=== PATIENT | female | born 1985 | race Caucasian/White ===

== ENCOUNTER → 2020-09-20 06:47 | Outpatient (CLI) | payer OTHER, SELFPAY ==
[2020-09-20 22:40] LABS: SARS-CoV-2 RNA PCR Negative
== END ==
PROVIDERS: PCP Physician Assistant; Visit Provider Physician Assistant
DX: R68.89 Other general symptoms and signs (principal); Z20.822 Contact with and (suspected) exposure to COVID-19
CPT/HCPCS: C9803; U0003; U0005

== ENCOUNTER 2021-06-04 16:48 | Emergency (ER) | payer OTHER, SELFPAY ==
[2021-06-04 17:01] VITALS: BP 117/65; PULSE 74; RESP 18; TEMP 36.6; O2SAT 99
--- NOTE | 2021-06-04 17:47 | ED.URI ---
HPI - URI/Sore Throat General Chief Complaint: Upper Respiratory Infection Stated Complaint: sorethroat Time Seen by Provider: 06/04/21 17:39 Source: patient and RN notes reviewed Mode of arrival: ambulatory Limitations: no limitations History of Present Illness HPI Narrative: Patient presents today complaining of sore throat, right ear pain, headache. Symptoms began today. She currently rates her pain 6/10 and has been taking Letty-Eldora cold medicine and Zicam with some mild relief. Denies cough, congestion, rhinorrhea, or any additional symptoms. She received her flu vaccine yesterday. MD elicited complaint: sore throat Related Data Home Medications Medication Instructions Recorded Confirmed bupropion HCl 1 mg PO DAILY 06/04/21 06/04/21 escitalopram oxalate 10 mg PO DAILY 06/04/21 06/04/21 Allergies Allergy/AdvReac Type Severity Reaction Status Date / Time Penicillins Allergy Unknown Verified 06/04/21 17:08 Review of Systems Review of Systems: CONSTITUTIONAL: Denies body aches, fever, chills, or sweats. EYES: Denies visual changes, redness, or discharge. ENT: Denies rhinorrhea, congestion. + Sore throat, right ear pain CARDIOVASCULAR: Denies chest pain, palpitations, or edema. RESPIRATORY: Denies cough or dyspnea. GASTROINTESTINAL: Denies abdominal pain, nausea, vomiting, or diarrhea. GENITOURINARY: Denies dysuria or hematuria. SKIN: Denies rash, itching, or wounds. MUSCULOSKELETAL: Denies back pain, joint pain, or myalgia. NEUROLOGIC: Denies numbness, tingling, or weakness.+ Headache PSYCH: Denies depression or anxiety. PMFSH Comments At time of signature, I have reviewed and agree with nursing past medical, surgical, social and family history unless otherwise noted. Please see nursing chart for further information. There is no relevant family history pertinent to the presenting complaint Exam Narrative: GENERAL: Well-appearing, well-nourished, and in no acute distress. HEAD: Normocephalic, atraumatic. EYES: EOMI. No redness or drainage. Conjunctivae normal. ENT: Mucous membranes pink and moist. Nares clear. No rhinorrhea. Right middle ear effusion with clear fluid. Throat erythematous without edema. 2 tiny dots of exudate to the right tonsil. Tonsils 1+ bilaterally. Uvula midline. NECK: Normal AROM. Supple. No lymphadenopathy. CHEST: No respiratory distress. Clear to auscultation. HEART: Regular rate and rhythm. No murmur appreciated. Normal peripheral pulses. EXTREMITIES: Normal range of motion. No edema. SKIN: Warm, dry, no rash. Capillary refill normal. Normal skin turgor. NEURO: No focal deficits. Alert and oriented x3. Gait steady. PSYCH: Normal affect. No signs of depression or anxiety. Course Vital Signs Vital signs: Vital Signs Temperature 97.9 F 06/04/21 17:01 Pulse Rate 74 06/04/21 17:01 Respiratory Rate 18 06/04/21 17:01 Blood Pressure 117/65 06/04/21 17:01 Pulse Oximetry 99 06/04/21 17:01 Temperature 97.9 F 06/04/21 17:01 Pulse Rate 74 06/04/21 17:01 Respiratory Rate 18 06/04/21 17:01 Blood Pressure 117/65 06/04/21 17:01 Pulse Oximetry 99 06/04/21 17:01 Reviewed MDM - URI/Sore Throat Differential Diagnosis Differential diagnosis: Likely upper respiratory infection, otitis media, viral infection, pharyngitis and other (Strep throat) Lab Data Attestation: I reviewed the patient's lab results. Labs: Strep Screen Presumptive Negative *(Reference Range: Negative)* Critical Care Time Critical Care Time Critical Care Time: No Discharge Plan Discharge Clinical Impression: Acute viral pharyngitis Patient Disposition: Home, Self-Care Condition: Stable Instructions: Pharyngitis (ED) Additional Instructions: Your rapid strep swab was negative today at [facility]. You will be notified in a few days if the culture comes back positive for strep, and appropriate antibiotics w
== END 2021-06-04 17:54 | disposition home or self-care (01) ==
PROVIDERS: Emergency Provider Nurse Practitioner; PCP Physician Assistant
DX: J02.8 Acute pharyngitis due to other specified organisms (principal); F41.9 Anxiety disorder, unspecified; F32.9 Major depressive disorder, single episode, unspecified
CPT/HCPCS: 87081; 87880; 99213; G0463

== ENCOUNTER 2022-04-15 01:03 | Day surgery (SDC) | payer OTHER, SELFPAY ==
--- NOTE | 2022-04-06 09:40 | SUR.PREOP ---
Report to the Outpatient Waiting Room, entrance under the green pavilion located off [facility], at time 0800 on date 04/15/22. Planned Procedure Time: 1000. Time changes happen often and if your time is changed the preop area will call you the afternoon before. - You and your visitor will be asked to self-screen and do not enter if you have any COVID symptoms. - We encourage only one visitor and NO visitors under age 16 are allowed at this time. Your visitor will receive communication by the phone number that is given day of service. - The patient visitor is requested to social distance or may leave the building when not with patient due to restrictions. - A mask is required within the hospital. Patients may have clear liquids (water, carbonated beverages, clear teas, apple juice) until 3 hours prior to surgery with a maximum of 20 ounces. - NO CLEAR LIQUIDS AFTER 0700 - No food from midnight until time of surgery - Infants may have breast milk until 4 hours before surgery, infant formula 6 hours prior to surgery. - Children will be allowed to drink immediately following surgery. If applicable, please bring a bottle or sippy cup to assist with drinking. Juice, water, soda, and popsicles are readily available. For infants on formula, please bring formula the day of surgery. Pacifiers are allowed. Please no make-up, nail bulgarian, hairspray, perfume, deodorant, or body powder the day of surgery. No jewelry (including any body piercings) or valuables the day of surgery, leave them at home. Please take a shower or bath the night before, or the morning of, surgery with an antibacterial soap. Wear comfortable, loose fitting clothing. Children are encouraged to wear pajamas. - Jewelry must be removed prior to entering the operating room. Rings and piercings that are not removed may be cut off. - The hospital will not accept responsibility for valuables. - Please leave all valuables, including medications, at home the day of surgery. If you are going home after surgery, a licensed ross carrier driver must drive you home. - NO public transportation without another adult. - We recommend that an adult stay with you for 24 hours following discharge. - We also recommend that you do not drive, make important decision, drink alcoholic beverages, or take any drugs that were not prescribed by your health care provider for at least 24 hours after your discharge time. For Pediatric surgeries, we recommend two adults accompany the child home. Follow any additional instructions given to you from your surgeon. If you or anyone in your household have experienced Covid symptoms in the past week, please notify your surgeon or the nurse liaison at the phone number below for possible testing. Telephone instructions given to RAEGAN PETERSONN and asked if any additional questions and then verbalized understanding. Patient advised to call surgeon office or pre surgery nurse liaison [phone] if any additional questions.
[2022-04-06 09:50] VITALS: BMI 32.0
--- NOTE | 2022-04-14 13:31 | PM.IMHP ---
H&P: HPI History of Present Illness Date/Time: 04/14/22 13:31 37-year-old female presents with complaints of heavy vaginal bleeding. Menstrual cycles lasting 5-7 days 3-5 days heavy with clotting and significant amount of discomfort. She denies any medical treatment for this issue. Also longstanding history of left Bartholin gland cyst, which now is larger and state causing her discomfort. Chief Complaint: menometrorrha Review of Systems Review of Systems: All systems reviewed & are unremarkable except as noted in HPI and below PMFSH Past Medical History Medical History Anxiety and depression Surgical History Surgical History Delivery by section (08/25/18) rpt c/s with Tubal ligation Delivery by section (~12/20/14) primary c/s arrest of descent History of colposcopy (07/14/06) Colposcopy - no acetowhitening, -ECC- benign History of gynecological procedure mirena iud insertion 02/11/2015 / mirena iud removal 02/18/2017 Family History Family History Grandparent Lung cancer Social History Social History Years smoked: 5 Smoking status: Current some day smoker Tobacco type: cigarettes and e-cigarettes/vaping Additional smoking assessment comments: CIGARETTES ~3YRS ON & OFF & NOW CURRENTLY VAPING ~2YRS Alcohol intake: current Drinks per week: 4 Substance use: never Additional living arrangements comments: 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[employer] Gender identity (if verbalized by the patient): Female Sexual Orientation (if Verbalized by the Patient): Straight or Heterosexual Spiritual care concerns: No Meds Home Medications and Allergies Home Medications Medication Instructions Recorded Confirmed Type bupropion HCl 300 mg 24 hr tablet, 1 mg PO DAILY 06/04/21 04/06/22 History extended release semaglutide (weight loss) 2.4 2.4 mg subcut WEEKLY 03/08/22 04/06/22 History mg/0.75 mL subcutaneous pen injector (Wejorge avy) escitalopram oxalate 20 mg tablet 20 mg PO DAILY 04/06/22 04/06/22 History Allergies Allergy/AdvReac Type Severity Reaction Status Date / Time Penicillins Allergy Unknown Hives Verified 04/06/22 09:49 Exam Const: General: cooperative, healthy appearing and comfortable Resp: Effort & Inspection: normal respiratory effort Auscultation: clear to auscultation bilaterally Cardio: Rate: regular rate Rhythm: regular rhythm GI: Inspection: normal to inspection Auscultation: normal bowel sounds : External Female Exam: normal external appearance Speculum Exam - Vagina: other ( 4-5cm Bartholin gland cyst (left)) Assessment and Plan Assessment and plan (1) Menometrorrhagia: Code(s): N92.1 - Excessive and frequent menstruation with irregular cycle Status: Acute (2) Bartholin gland cyst: Code(s): N75.0 - Cyst of Bartholin's gland Status: Acute Plan 1. Hysteroscopy with uterine curettings 2. Endometrial ablation 3. Bartholin's gland cystectomy
--- NOTE | 2022-04-14 16:05 | WPDANESEPPF ---
Anes - Initial Pre Proc Eval Procedure: Operation Date: 04/15/22 10:00 Proposed Procedures p Hysteroscopy, Dilation and Curettage, Sandy Endometrial Ablation - Ishmael Cai MD s Left Bartholin's Gland Cystectomy - Ishmael Cai MD Date/Time: 04/14/22 16:05 Surgeon: Ishmael Cai MD Pre Op Diagnosis: Menometrorrhagia, Lt Bartholin Gland Cyst Patient Data Age: 37 Gender: F Height: 1.68 m Weight: 90 kg Allergies Allergy/AdvReac Type Severity Reaction Status Date / Time Penicillins Allergy Unknown Hives Verified 04/06/22 09:49 Home Medications Medication Instructions Recorded Confirmed Type bupropion HCl 300 mg 24 hr tablet, 1 mg PO DAILY 06/04/21 04/15/22 History extended release semaglutide (weight loss) 2.4 2.4 mg subcut WEEKLY 03/08/22 04/15/22 History mg/0.75 mL subcutaneous pen injector (Wegovy) escitalopram oxalate 20 mg tablet 20 mg PO DAILY 04/06/22 04/15/22 History Patient hx anesthesia problems: none Family hx anesthesia problems: none Results Review: All pre-operative results and documents have been reviewed as part of the pre-operative evaluation. [facility] Past Medical History Medical History Anxiety Anxiety and depression Menometrorrhagia Obesity Smoker Surgical History Surgical History Delivery by section (08/25/18) rpt c/s with Tubal ligation Delivery by section (~12/20/14) primary c/s arrest of descent History of colposcopy (07/14/06) Colposcopy - no acetowhitening, -ECC- benign History of gynecological procedure mirena iud insertion 02/11/2015 / mirena iud removal 02/18/2017 Family History Family History Grandparent Lung cancer Social History Social History Years smoked: 5 Smoking status: Current some day smoker Tobacco type: cigarettes and e-cigarettes/vaping Additional smoking assessment comments: CIGARETTES ~3YRS ON & OFF & NOW CURRENTLY VAPING ~2YRS Alcohol intake: current Drinks per week: 4 Substance use: never Living arrangements: with family Additional living arrangements comments: 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ment Gender identity (if verbalized by the patient): Female Sexual Orientation (if Verbalized by the Patient): Straight or Heterosexual Spiritual care concerns: No Anes - Eval Final PreProcedure Day of Procedure 04/14/22 16:05 Patient weight: obese Heart: regular rate and rhythm Lungs: clear to auscultation and normal air movement Airway: Mallampati scale class II Neurological: alert and oriented Last oral intake: >/= 8 hours ASA classification: II Emergent: no Anesthetic plan: proceed Anesthesia type and monitoring: general GIVS and LMA Results Review: All pre-operative results and documents have been reviewed as part of the pre-operative evaluation. Informed Consent: The patient's anesthetic plan and its attendant risks and benefits were discussed with the patient/family/POA. Questions were solicited and answers provided to the satisfaction of the patient/family/POA.
[2022-04-15 08:08] VITALS: BP 113/67; PULSE 82; RESP 20; TEMP 36.4; O2SAT 98
[2022-04-15] MEDS: ACETAMINOPHEN 500 MG TABLET 1000 MG PO (08:18)
[2022-04-15] MEDS: LACTATED RINGERS 1,000 ML 30 ML IV CONT ×2 (09:00→10:20)
--- NOTE | 2022-04-15 09:25 | WPDHPUPDATE1 ---
History and Physical Update Update Date/Time: 04/15/22 09:25 History and Physical has been reviewed, including an updated exam of the patient. There are NO changes in the patient's condition. Risks, benefits, and alternatives have been discussed and questions answered. Patient agrees to proceed with procedure.
[2022-04-15] MEDS: ceFAZolin 2 GM/D5W 50 ML 2 GM/50 ML BAG IVPB (09:30)
[2022-04-15] MEDS: LIDOCAINE HCL 1% PF 30 ML VIAL 10 ML INFILTRATE (09:47)
--- NOTE | 2022-04-15 10:14 | W.PM.PROC2 ---
Procedure Note - Detailed Date of Procedure 04/15/22 Pre-op Diagnosis 1 Menometrorrhagia, 2 Lt Bartholin Gland Cyst Post-op Diagnosis Same Procedure Performed 1. Hysteroscopy with uterine curettings 2. Endometrial ablation 3. Left Bartholin gland cystectomy Surgeon Ishmael Cai MD Anesthesia MAC Findings 1. On hysteroscopic exam thickened tissue noted throughout though no specific polyps or fibroids. 2. Vaginal exam revealed 5cm left Bartholin's cyst Description of Procedure Patient prepped and draped in usual manner for the procedure. Cervix was dilated allow the hysteroscope to be placed. Hysteroscopic exam revealed findings as above and curettings were obtained. Endometrial ablation instrument was placed, cavity assessment was performed, and the instrument was activated. At the end of the cycle hysteroscopic exam revealed destruction of the entire cavity. Attention then placed to the left vulva. The vaginal mucosa over the cyst was injected with lidocaine and then incised with clear fluid drained. The cyst wall was then dissected. This deep defect was closed using 2-0 chromic in a running interlocking manner to approximate the deep tissue and close this space. Subcuticular incision was then approximated using 2-0 chromic in a running manner to approximate the skin edges. There was no evidence of hematoma accumulation or any further fluid collection. At this point the procedure was considered terminated and the patient was sent to the recovery room in stable condition. Estimated Blood Loss 25 Drains No Packing No Pathology Yes Complications No immediate complications Condition Stable Disposition PACU [facility] Billing Surgery - Charge Forward: Surgery Billing
[2022-04-15 10:19] VITALS: BP 102/61; PULSE 76; RESP 16; O2SAT 100
[2022-04-15 10:45] VITALS: BP 124/73; PULSE 69; RESP 16
[2022-04-15] MEDS: oxyCODONE HCL (*CRX) 5 MG TAB IR PO (10:59)
[2022-04-15 11:15] VITALS: BP 132/81; PULSE 62; RESP 16
[2022-04-15 11:45] VITALS: BP 130/86; PULSE 76; RESP 16
== END 2022-04-15 11:58 | disposition home or self-care (01) ==
PROVIDERS: PCP Physician Assistant; Visit Provider Obstetrics & Gynecology
PROC: 0U5B8ZZ Destruction of Endometrium, Via Natural or Artificial Opening Endoscopic (ICD-10-PCS; CPT 58563; principal; 2022-04-15 10:00)
PROC: (CPT 56440; 2022-04-15 10:00)
DX: N92.1 Excessive and frequent menstruation with irregular cycle (principal); N75.0 Cyst of Bartholin's gland; F41.8 Other specified anxiety disorders; E66.9 Obesity, unspecified; Z68.33 Body mass index [BMI] 33.0-33.9, adult; F17.290 Nicotine dependence, other tobacco product, uncomplicated
CPT/HCPCS: 58563; 56740; 88305; A9270; J0690; J1100; J2250; J2405; J2704; J3010; J7030; J7120

== ENCOUNTER 2023-08-31 14:25 | Emergency (ER) | payer OTHER, SELFPAY ==
[2023-08-31 14:48] VITALS: BP 115/72; PULSE 79; RESP 16; TEMP 36.7; O2SAT 99
--- NOTE | 2023-08-31 15:05 | ED.URI ---
HPI - URI/Sore Throat General Chief Complaint: Upper Respiratory Infection Stated Complaint: sorethroat History of Present Illness HPI Narrative: 38 y/o female presented for c/o sore throat, sinus congestion and drainage, and mild cough. Denies sob, wheezing, n/v/d/f/c. Taking mucinex. Related Data Home Medications Medication Instructions Recorded Confirmed bupropion HCl 300 mg 24 hr tablet, 1 mg PO DAILY 06/04/21 08/31/23 extended release semaglutide (weight loss) 2.4 2.4 mg subcut WEEKLY 03/08/22 08/31/23 mg/0.75 mL subcutaneous pen injector (Wegovy) escitalopram oxalate 20 mg tablet 20 mg PO DAILY 04/06/22 08/31/23 alprazolam 0.5 mg tablet 0.5 mg PO QHS PRN Anxiety 04/22/23 08/31/23 buspirone 5 mg tablet 5 mg PO BID 08/31/23 08/31/23 Allergies Allergy/AdvReac Type Severity Reaction Status Date / Time Penicillins AdvReac Mild Hives Verified 08/31/23 14:45 Review of Systems Review of Systems: CONSTITUTIONAL: Denies body aches, fever, chills, or sweats. EYES: Denies visual changes, redness, or discharge. ENT: reports rhinorrhea, congestion, sore throat CARDIOVASCULAR: Denies chest pain, palpitations, or edema. RESPIRATORY: Denies dyspnea. GASTROINTESTINAL: Denies abdominal pain, nausea, vomiting, or diarrhea. SKIN: Denies rash, itching, or wounds. MUSCULOSKELETAL: Denies back pain, joint pain, or myalgia. NEUROLOGIC: Denies headache PMFSH Past Medical History Medical History Abnormal Pap smear of cervix 10/04/06 LGSIL/HPV, 09/04/07 ASCUS/HPV Anxiety Anxiety and depression Endometriosis HPV in female Menometrorrhagia Obesity Smoker Surgical History Surgical History Delivery by section (08/25/18) rpt c/s with Tubal ligation Delivery by section (~12/20/14) primary c/s arrest of descent History of colposcopy (07/14/06) Colposcopy - no acetowhitening, -ECC- benign History of gynecological procedure mirena iud insertion 02/11/2015 / mirena iud removal 02/18/2017 History of gynecological procedure (04/15/22) Bartholins gland cysts removal Family History Family History Grandparent Lung cancer Social History Social History Years smoked: 5 Smoking status: Current some day smoker Tobacco type: cigarettes and e-cigarettes/vaping Additional smoking assessment comments: CIGARETTES ~3YRS ON & OFF & NOW CURRENTLY VAPING ~2YRS Alcohol intake: current Drinks per week: 4 Alcohol use details: ocassional Substance use: never Substance use type: does not use Lack of Transportation: No Lack of Food: Never True Current Housing: I Have Housing Concerned About Future Housing: No Difficulty Paying Gas/Electric Bills: No Difficulty Paying for Meds: No Currently Unemployed: No Education: Bachelor's Degree Difficulty w/ Childcare or Family Care: No Living arrangements: with family Additional living arrangements comments: 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 EYES: conjunctivae clear ENT: Mucous membranes moist. TM pearly jang with normal light reflex bilaterally; no tragal tenderness. Oropharynx erythematous without lesions. Tonsils enlarged 1+ and without exudate. No drooling, no hoarseness, no trismus, uvula midline. No tripod positioning, hot potato voice, or soft palate swelling. NECK: Supple. No lymphadenopathy CHEST: Clear to auscultation, breath sounds equal. No respiratory distress, speaks in full sentences. HEART: Regular rate and rhythm. No murmur heard. SKIN: Warm, dry, no rash.
== END 2023-08-31 15:20 | disposition home or self-care (01) ==
PROVIDERS: Emergency Provider Nurse Practitioner Family; PCP Physician Assistant
DX: J06.9 Acute upper respiratory infection, unspecified (principal); F17.290 Nicotine dependence, other tobacco product, uncomplicated; N80.9 Endometriosis, unspecified; E66.9 Obesity, unspecified; Z68.28 Body mass index [BMI] 28.0-28.9, adult; F41.9 Anxiety disorder, unspecified; F32.A Depression, unspecified
CPT/HCPCS: 87081; 87880; 99213; G0463